=== PATIENT | female | born 1980 | race Caucasian/White ===

== ENCOUNTER 2023-07-30 07:46 | Day surgery (SDC) | payer OTHER ==
[~2023-07-30] VITALS: Ht 167.6 cm; Wt 107.0 kg
[2023-07-30] MEDS ORDERED: MIDAZOLAM 5 MG/5 ML VIAL ONE (08:56)
[2023-07-30] MEDS ORDERED: LIDOCAINE 2% 100 MG/5 ML UJET TP ONE (08:56)
[2023-07-30] MEDS ORDERED: fentaNYL citrate 0.05 MG/ML VIAL ONE (08:56)
[2023-07-30] MEDS ORDERED: diphenhydrAMINE 50 MG/ML VIAL ONE (09:05)
[2023-07-30] MEDS: MIDAZOLAM 5 MG/5 ML VIAL IV ONE (09:23)
[2023-07-30] MEDS: fentaNYL citrate 0.05 MG/ML VIAL IVP ONE (09:24)
[2023-07-30] MEDS: diphenhydrAMINE 50 MG/ML VIAL IVP ONE (09:27)
== END 2023-07-30 10:56 | disposition home or self-care (01) ==
LOC: MDS 07:46 → MMU 07:57 → MDS 10:56
PROVIDERS: ATTEND Surgery
DX: R10.32 Left lower quadrant pain (principal); K57.20 Diverticulitis of large intestine with perforation and abscess without bleeding; N82.3 Fistula of vagina to large intestine; Z90.710 Acquired absence of both cervix and uterus; Z98.891 History of uterine scar from previous surgery; Z79.899 Other long term (current) drug therapy; Z98.890 Other specified postprocedural states
CPT/HCPCS: 45378; 82948; J1200; J2250; J3010